=== PATIENT | female | born 1985 | race Caucasian/White ===

== ENCOUNTER → 2025-07-30 06:56 | Outpatient (REF) | payer OTHER, SELFPAY | LOC: PNTC 06:56 | PROVIDERS: ATTENDING PHYSICIAN Obstetrics & Gynecology | DX: O99.612 Diseases of the digestive system complicating pregnancy, second trimester (principal); O99.212 Obesity complicating pregnancy, second trimester; O09.512 Supervision of elderly primigravida, second trimester; O35 Maternal care for known or suspected fetal abnormality and damage | CPT/HCPCS: 76805 ==

== ENCOUNTER → 2025-09-03 13:18 | Outpatient (REF) | payer OTHER, SELFPAY | LOC: PNTC 13:18 | PROVIDERS: ATTENDING PHYSICIAN Obstetrics & Gynecology | DX: O99.212 Obesity complicating pregnancy, second trimester (principal); O35.5XX0 Maternal care for (suspected) damage to fetus by drugs, not applicable or unspecified; O99.612 Diseases of the digestive system complicating pregnancy, second trimester; Z36.86 Encounter for antenatal screening for cervical length; Z36.89 Encounter for other specified antenatal screening; O09.522 Supervision of elderly multigravida, second trimester | CPT/HCPCS: 76811; 76817 ==

== ENCOUNTER 2025-10-01 15:05 | Observation (INO) | payer OTHER, SELFPAY ==
[2025-10-01 15:23] LABS: Urine Character Clear (Clear)
[2025-10-01 15:38] VITALS: BP 106/59; BMI 41.9
[2025-10-01 15:39] LABS: Hematocrit 38.9 % (37.0-47.0); Hemoglobin 13.2 g/dL (12.0-16.0); Mean Corp Hgb Conc. 33.9 g/dL (33.0-37.0); Mean Corpuscular Volume 84.7 fL (81.0-99.0); Nucleated Red Blood Cells % 0 %; Platelet Count 282 10^3/uL (130-400); Red Cell Dist. Width 12.7 % (11.5-14.5)
[2025-10-01 15:59] LABS: ALT (SGPT) 28 U/L (0-35); AST (SGOT) 30 U/L (14-36); Albumin 3.5 g/dl (3.5-5.0); Alkaline Phosphatase 82 U/L (38-126); Blood Urea Nitrogen 8 mg/dl (7-17); Calcium 9.2 mg/dl (8.4-10.2); Carbon Dioxide 23 mmol/L (22-30); Chloride 108 mmol/L (98-107); Estimated Creatinine Clearance > 125 ml/min; Glucose 86 mg/dl (70-99); Potassium 4.2 mmol/L (3.5-5.1); Sodium 133 mmol/L (135-145); Total Protein 6.5 g/dl (6.3-8.2); eGFR > 60.00
[2025-10-01] MEDS: TYLENOL 1000 MG PO (16:35)
[2025-10-01] MEDS: REGLAN 10 MG PO (16:36)
== END 2025-10-01 16:50 | disposition home or self-care (01) ==
LOC: PNTC-IN 15:05
PROVIDERS: ADMITTING PHYSICIAN Obstetrics & Gynecology
DX: O26.892 Other specified pregnancy related conditions, second trimester (principal); R51.9 Headache, unspecified; Z3A.24 24 weeks gestation of pregnancy
CPT/HCPCS: 80053; 81003; 82570; 84156; 85025; G0378

== ENCOUNTER → 2025-10-17 08:52 | Outpatient (REF) | payer OTHER, SELFPAY | LOC: PNTC 08:52 | PROVIDERS: ATTENDING PHYSICIAN Obstetrics & Gynecology | DX: O09.523 Supervision of elderly multigravida, third trimester (principal); O99.213 Obesity complicating pregnancy, third trimester; O99.613 Diseases of the digestive system complicating pregnancy, third trimester | CPT/HCPCS: 76816 ==